=== PATIENT | male | born 1995 | race Hispanic/Latino ===

== ENCOUNTER 2016-09-02 10:03 | Emergency (ER) | payer SELFPAY ==
[2016-09-02 10:12] VITALS: BP 106/67; TEMP 97; O2SAT 99
--- NOTE | 2016-09-02 10:13 | ED.PDOC ---
History of Present Illness - General Chief Complaint: Lower Extremity Injury Stated Complaint: L ankle pain Time Seen by Provider: 09/02/16 10:08 Source: patient, RN notes reviewed, Vital Signs reviewed Exam Limitations: no limitations - History of Present Illness Initial Comments: Patient reports that while playing basketball yesterday he came down on his L ankle. + pain and swelling. Still able to ambulate but with pain. No numbness or tingling. No weakness. Occurred: yesterday Pain - Lower Extremity: moderate: Left Ankle Method of Injury: twisted Improving Factors: rest Worsening Factors: movement Allergies/Adverse Reactions: Allergies NO KNOWN ALLERGY Allergy (Verified 09/02/16 10:09) Home Medications: Ambulatory Orders NK [NK] 09/02/16 Review of Systems - Review of Systems Constitutional: States: no symptoms reported Cardiology: States: no symptoms reported Musculoskeletal: States: see HPI, joint pain - L ankle, joint swelling - L ankle Skin: States: no symptoms reported Neurological: States: no symptoms reported. Denies: numbness, paresthesia, tingling, weakness Family Medical History - Family History Mother Family History: No Known Living Status: Still Living Physical Exam - Physical Exam General Appearance: Alert, Comfortable, No apparent distress, Well Developed, Well Groomed, Well Hydrated, Well Nourished Cardiovascular/Respiratory: normal peripheral pulses Leg: no evidence of injury, normal ROM Knee: normal inspection, no evidence of injury, normal ROM Ankle: normal ROM, soft tissue tenderness, swelling - L ankle Foot: normal inspection, non-tender, no evidence of injury, normal ROM Neuro/Tendon: normal sensation, normal motor functions, normal tendon functions Mental Status: alert, oriented x 3 Skin: normal color, warm/dry Progress - EKG/XRAY/CT XRAY: ankle - Joint effusion o/w nl per Radiologist Procedures - Splinting Left Ankle Pre-Made Type: aircast Pre-Proc Neuro Vasc Exam: normal Post-Proc Neuro Vasc Exam: normal Departure - Departure Clinical Impression: Sprain of left ankle or foot Time of Disposition: 10:45 Disposition: Discharge to Home or Self Care Condition: Good Departure Forms: ED Discharge - Pt. Copy, Patient Portal Self Enrollment Instructions: DI for Ankle Sprain Diet: resume usual diet Activity: increase activity as tolerated Home Medications: Ambulatory Orders NK [NK] 09/02/16
--- NOTE | 2016-09-02 10:27 | RAD ---
EXAM DESCRIPTION: Ankle,Left 3 Views CLINICAL HISTORY: 21 years Male, twisted while playing basketball COMPARISON: None. FINDINGS: There is no acute fracture or malalignment. The tibiotalar joint space and talar dome are well maintained. There is no soft tissue swelling. A left ankle joint effusion is noted. The calcaneus, subtalar joint and base of the 5th metatarsal are intact. There is no radiopaque foreign body or soft tissue gas. IMPRESSION: Left ankle joint effusion, otherwise unremarkable exam. Electronically signed by: Duncan August MD 09/02/2016 10:26 AM CDT
== END 2016-09-02 10:53 | disposition home or self-care (01) ==
LOC: ER 10:03
DX: S93.402A Sprain of unspecified ligament of left ankle, initial encounter (principal); X58.XXXA Exposure to other specified factors, initial encounter; Y93.67 Activity, basketball

== ENCOUNTER → 2020-06-19 | Outpatient (CLI) | payer OTHER | LOC: YCFC.O 15:58 | PROVIDERS: ATTEND Nurse Practitioner | DX: U07.1 COVID-19 (principal) ==